=== PATIENT | female | born 1955 | race Two or more races ===

== ENCOUNTER 2021-11-13 08:06 | Emergency (ER) | payer OTHER, MEDICAID ==
[~2021-11-13] VITALS: Ht 149.9 cm; Wt 47.6 kg
[2021-11-13 10:52] LABS: Basophils # (auto) 0 10 ^3/uL (0-0.2); Eosinophils # (auto) 0 10 ^3/uL (0-0.8); Neutrophils # (auto) 3.5 10 ^3/uL (1.6-8.6); Nucleated Red Blood Cells % 0.1 %; White Blood Cell 4.7 10^3/uL (4.4-10.8)
[2021-11-13 10:56] LABS: Basophils % (auto) 0.8 % (0.0-2.0); Eosinophils % (auto) 0.4 % (0.0-7.0); Hematocrit 41.9 % (36.0-46.0); Lymphocytes # (auto) 0.8 10 ^3/uL (0.4-5.4); Lymphocytes % (auto) 17.5 % (10.0-50.0); Mean Corpuscular Hemoglobin 36.6 pg (28.0-32.0); Mean Corpuscular Hgb Conc. 33.3 g/dL (32.0-36.0); Mean Corpuscular Volume 109.7 fL (80.0-100.0); Monocytes # (auto) 0.3 10 ^3/uL (0-1.3); Monocytes % (auto) 7.2 % (0.0-12.0); Neutrophils % (auto) 74.1 % (37.0-80.0); Red Blood Cells 3.82 10^6/uL (4.0-5.20); Red Cell Distribution Width 13.5 % (11.8-14.3)
[2021-11-13 11:14] LABS: Calcium 8.6 mg/dL (8.5-10.1); Potassium 4.6 mmol/L (3.5-5.1)
[2021-11-13 11:20] LABS: BUN/Creatinine Ratio 55.6; Bilirubin, Total 0.2 mg/dL (0.2-1.0); Total Protein 7.5 g/dL (6.4-8.2)
[2021-11-13 12:12] VITALS: BP 153/51
== END 2021-11-13 13:07 | disposition home or self-care (01) ==
LOC: ER 08:06 → EDBD 08:06 → ER 13:07
DX: G80.9 Cerebral palsy, unspecified (principal); R07.89 Other chest pain
CPT/HCPCS: 36415; 70450; 71045; 72131; 72192; 80053; 84484; 85025; 93005

== ENCOUNTER 2023-01-25 14:40 | Emergency (ER) | payer OTHER, MEDICAID ==
[~2023-01-25] VITALS: Ht 154.9 cm; Wt 40.0 kg
[2023-01-25] MEDS ORDERED: SODIUM CHLORIDE 0.9% 1,000 ML IV ONE (15:00)
[2023-01-25 15:20] LABS: Basophils # (auto) 0 10 ^3/uL (0-0.2); Basophils % (auto) 0.4 % (0.0-2.0); Eosinophils # (auto) 0 10 ^3/uL (0-0.8); Eosinophils % (auto) 1.1 % (0.0-7.0); Hematocrit 43.7 % (36.0-46.0); Hemoglobin 14.5 g/dL (12.2-16.2); Mean Corpuscular Hgb Conc. 33.2 g/dL (32.0-36.0); Mean Corpuscular Volume 108.3 fL (80.0-100.0); Monocytes # (auto) 0.3 10 ^3/uL (0-1.3); Monocytes % (auto) 10.2 % (0.0-12.0); Neutrophils # (auto) 1.8 10 ^3/uL (1.6-8.6); Neutrophils % (auto) 56.3 % (37.0-80.0); Nucleated Red Blood Cells % 0.2 %; Red Blood Cells 4.03 10^6/uL (4.0-5.20); Red Cell Distribution Width 12.6 % (11.8-14.3); White Blood Cell 3.3 10^3/uL (4.4-10.8)
[2023-01-25 15:37] LABS: Albumin 3.6 g/dL (3.4-5.0); BUN/Creatinine Ratio 21.7; Calcium 8.6 mg/dL (8.5-10.1); Potassium 3.7 mmol/L (3.5-5.1)
[2023-01-25] MEDS ORDERED: LORazepam 2MG/ML-1ML VIAL IV ONE (15:45)
[2023-01-25] MEDS ORDERED: diphenhdrAMINE HCL 50 MG/1 ML VL IV ONE (15:45)
[2023-01-25 15:47] LABS: Bilirubin, Total 0.2 mg/dL (0.2-1.0); Total Protein 7.2 g/dL (6.4-8.2)
[2023-01-26 10:00] VITALS: BP 169/72
== END 2023-01-26 11:05 | disposition home or self-care (01) ==
LOC: EDBD 14:40 → ER 14:46
DX: R62.7 Adult failure to thrive (principal); I10 Essential (primary) hypertension; R51.9 Headache, unspecified; Z20.822 Contact with and (suspected) exposure to COVID-19
CPT/HCPCS: 36415; 70450; 80053; 84484; 85025; 85379; 87426; 93005; 96374; 96375; 99285; J1200; J2060